=== PATIENT | female | born 2000 | race Caucasian/White ===

== ENCOUNTER 2022-07-22 17:14 | Emergency (ER) | payer BC, SELFPAY ==
[2022-07-22 17:19] VITALS: BP 144/80; PULSE 93; RESP 20; TEMP 37.6; O2SAT 98; BMI 32.3
--- OUTSIDE RECORDS SUMMARY | 2022-07-22 18:17 | XMS_ITS | Continuity of Care Document ---
Author Name Unknown Organization [facility] Address [address] [facility] [address] [place] [address] Care Team Providers Care Hand Tennis Ball Coverer Name Role Phone Caity Hamilton Primary Care Physician Encounter 04/01/22 - 04/01/22 [facility] [address] [facility] [address] [place] [address] [facility] Discharge Disposition: Home or Self Care 01 Allergies, Adverse Reactions, Alerts No Known Allergies Immunizations Given and Recorded Vaccine Date Status Refusal Reason influenza virus vaccine, inactivated 12/19/20 Piyush rded SARS-CoV-2 (COVID-19) mRNA-1273 vaccine 08/20/20 R ecorded SARS-CoV-2 (COVID-19) mRNA-1273 vaccine 07/23/20 R ecorded meningococcal group B vaccine 10/03/16 Recorded meningococcal group B vaccine 06/21/16 Recorded meningococcal polysaccharide vaccine 06/21/16 Piyush rded meningococcal polysaccharide vaccine 06/24/11 Piyush rded human papillomavirus vaccine 02/06/13 Recorded human papillomavirus vaccine 09/19/12 Recorded human papillomavirus vaccine 07/11/12 Recorded tetanus/diphtheria/pertussis,acel (Tdap) 06/24/11 Recorded tetanus/diphtheria/pertussis,acel (Tdap) 07/20/04 Recorded tetanus/diphtheria/pertussis,acel (Tdap) 11/09/01 Recorded tetanus/diphtheria/pertussis,acel (Tdap) 00 Recorded tetanus/diphtheria/pertussis,acel (Tdap) 00 Recorded tetanus/diphtheria/pertussis,acel (Tdap) 00 Recorded hepatitis A adult vaccine 05/02/11 Recorded hepatitis A adult vaccine 08/17/10 Recorded varicella virus vaccine 06/19/07 Recorded varicella virus vaccine 05/18/01 Recorded poliovirus vaccine, inactivated 07/20/04 Recorded poliovirus vaccine, inactivated 11/09/01 Recorded poliovirus vaccine, inactivated 00 Recorded poliovirus vaccine, inactivated 00 Recorded measles/mumps/rubella virus vaccine 07/20/04 Recor ded measles/mumps/rubella virus vaccine 08/14/01 Recor ded pneumococcal 13-valent vaccine 05/19/03 Recorded pneumococcal 13-valent vaccine 02/09/01 Recorded pneumococcal 13-valent vaccine 00 Recorded pneumococcal 13-valent vaccine 00 Recorded hepatitis B adult vaccine 00 Recorded hepatitis B adult vaccine 00 Recorded hepatitis B adult vaccine 00 Recorded haemophilus b conjugate (HbOC) vaccine 00 Re corded haemophilus b conjugate (HbOC) vaccine 00 Re corded haemophilus b conjugate (HbOC) vaccine 00 Re corded Medications dicyclomine 10 mg oral capsule 20 mg = 2 cap, Oral, QID, # 60 cap, 0 Refill(s), Prescription Routing: Route to Pharmacy Electronically, Pharmacy: [facility]/pharmacy #[id number], 167.4, 11/03/21 12:45:00 EDT, Height, cm, 87.6, 10/12/21 17:08:00 EDT, Dosing Weight, kg Start Date: 11/03/21 Status: Ordered Metamucil 1.7 gm, Oral, 0 Refill(s) Start Date: 12/17/21 Status: Ordered Vitamin D3 5000 intl units oral capsule See Instructions, Capsule, 3 po once a week, 0 Refill(s) Start Date: 10/12/21 Status: Ordered Problem List Condition Confirmation Course Effective Dates Status Health St atus Informant Constipation in female Confirmed Active Gilbert's syndrome Confirmed 12/25/20 Active IBS (irritable bowel syndrome) Confirmed Active Mild intermittent asthma Confirmed 11/13/19 Active 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
--- OUTSIDE RECORDS SUMMARY | 2022-07-22 18:17 | XMS_ITS | Continuity of Care Document ---
Author Name Unknown Organization [facility] Address [address] [place] [address] Care Team Providers Care Speech Correction Consultant Name Role Phone Caity Hamilton Primary Care Physician Encounter 01/11/22 - 01/11/22 [facility] [address] [place] [address]- Discharge Disposition: Home or Self Care 01 [...] Prescription Routing: Route to Pharmacy Electronically, Pharmacy: [facility]/pharmacy #[id number], 167.4, 11/03/21 12:45:00 EDT, Height, cm, 87.6, 10/12/21 17:08:00 EDT, Dosing Weight, kg Start Date: 11/03/21 Status: Ordered Metamucil 1.7 gm, Oral, 0 Refill(s) Start Date: 12/17/21 Status: Ordered Vitamin D3 5000 intl units oral capsule See Instructions, Capsule, 3 po once a week, 0 Refill(s) Start Date: 10/12/21 Status: Ordered Problem List Condition Effective Dates Status Health Status Inform ant Constipation in female(Confirmed) Active Gilbert's syndrome(Confirmed) 12/25/20 Active IBS (irritable bowel syndrome)(Confirmed) Active Mild intermittent asthma(Confirmed) 11/13/19 Active Myoclonus(Confirmed) 11/13/19 Active Pain in pelvis(Confirmed) Active PVCs (premature ventricular contractions)(Confirmed) Active Vitamin D deficiency(Confirmed) 02/02/21 Active Social History Social History Type Response Smoking Status Never (less than 100 in lifetime) entered on: 04/02/21 Sex
--- OUTSIDE RECORDS SUMMARY | 2022-07-22 18:17 | XMS_ITS | Continuity of Care Document ---
Author Name Unknown Organization [facility] Primary Care an d [address] [place] [phone] Encounter 03/29/21 - 03/29/21 [facility] Primary Care and Travel [address] [place] [address] Discharge Disposition: Home or Self Care 01 Assessment and Plan Future Appointments Appointment Date:04/02/2021 04:00:00 PM Scheduled Provider:Alfonso LANE, Caity Li Location:[facility] [place] Appointment Type:Acute Visit Medications magnesium oxide 400 mg (240 mg elemental magnesium) oral tablet Refill(s) 0 Start Date: 03/29/21 Status: Ordered
--- OUTSIDE RECORDS SUMMARY | 2022-07-22 18:17 | XMS_ITS | Continuity of Care Document ---
Author Name Unknown Organization [facility] Address [address] [place] [address] Care Team Providers Care Medical Staff Specialist Name Role Phone Caity Hamilton Primary Care Physician Encounter 03/29/22 - 03/29/22 [facility] [address] [place] [address]- Encounter Diagnosis Myoclonus(Discharge Diagnosis) - 03/29/22 Attending Physician: Mally Hartmann MD Referring Physician: Caity Hamilton MD Allergies, Adverse Reactions, Alerts No Known Allergies [...] Prescription Routing: Route to Pharmacy Electronically, Pharmacy: [facility]/pharmacy #[id number], 167.4, 11/03/21 12:45:00 EDT, Height, cm, [...] Active Vitamin D deficiency Confirmed 02/02/21 Active Vital Signs Most recent to oldest [Reference Range]: 1 Height [124-244 cm] 167.4 cm (03/29/22 10:53 AM) Height (in) 65.9 inch (03/29/22 10:53 AM) Weight 86.36 kg (03/29/22 10:53 AM) Body Mass Index 30.8 kg/m2 (03/29/22 10:53 AM) Social History Social History Type Response Smoking Status Never (less than 100 in lifetime) entered on: 04/02/21 Sex Patient Care team information Care Team Personnel Name: Caity Hamilton MD Position: P3 Physician Primary Care Member Role: Primary Care Physician Address: Address: [address] [place] [address] [address] [place] [address]-
--- OUTSIDE RECORDS SUMMARY | 2022-07-22 18:17 | XMS_ITS | Continuity of Care Document ---
Author Name Unknown Organization [facility] Primary Care an d Travel Medicine[address] [place] [address] Care Team Providers Care Real Estate Salesperson Name Role Phone Caity Hamilton Primary Care Physician Encounter 04/12/22 - 04/12/22 [facility] Primary Care and Travel [address] [place] [address] Discharge Disposition: Home or Self Care 01 [...] Routing: Route to Pharmacy Electronically, Pharmacy: [facility]/pharmacy #[id number], 167.4, 11/03/21 12:45:00 EDT, Height, cm, [...] Member Role: Primary Care Physician Address: Address: [address] [facility] [address] [place] [address]
--- OUTSIDE RECORDS SUMMARY | 2022-07-22 18:17 | XMS_ITS | Continuity of Care Document ---
Author Name Unknown Organization [facility] Primary Care an d Travel [address] [place] [address] Care Team Providers Care Deckhand Shrimp Boat Name Role Phone Caity Hamilton Primary Care Physician Encounter 12/17/21 - 12/19/21 [facility] Primary Care and Travel [address] [place] [address] Encounter Diagnosis IBS (irritable bowel syndrome)(Discharge Diagnosis) - 12/17/21 Constipation in female(Discharge Diagnosis) - 12/17/21 Discharge Disposition: Home or Self Care 01 Attending Physician: Caity Hamilton MD Referring Physician: Caity Hamilton MD Allergies, [...] Routing: Route to Pharmacy Electronically, Pharmacy: [facility]/pharmacy #[id number], 167.4, 11/03/21 12:45:00 EDT, Height, [...] contractions)(Confirmed) Active Vitamin D deficiency(Confirmed) 02/02/21 Active Vital Signs Most recent to oldest [Reference Range]: 1 Peripheral Pulse Rate [60-100 bpm] 67 bp m (12/17/21 12:17 PM) Blood Pressure [90-150/60-90 mmHg] 110/7 0mmHg (12/17/21 12:17 PM) Mean Arterial Pressure 83 mmHg (12/17/21 12:17 PM) Blood Pressure Laterality Right (12/17/21 12:17 PM) Blood Pressure Site Upper arm (12/17/21 12:17 PM) SpO2 [94-100 %] 93 % *LOW* (12/17/21 12:17 PM) Height 167.4 cm (12/17/21 12:17 PM) Height (in) 65.9 inch (12/17/21 12:17 PM) Weight 89.4 kg (12/17/21 12:17 PM) Weight (lbs) 196.68 lb (12/17/21 12:17 PM) Body Mass Index 31.9 kg/m2 (12/17/21 12:17 PM) Dosing Weight 89.40 kg 1 (12/17/21 12:17 PM) 1Result Comment: Created by a rule ([facility]_[id number]) from the measured Weight Social History Social History Type Response Smoking Status Never (less than 100 in lifetime) entered on: 04/02/21 Sex
--- OUTSIDE RECORDS SUMMARY | 2022-07-22 18:17 | XMS_ITS | Continuity of Care Document ---
Author Name Unknown Organization [facility] Primary Care an d Travel Medicine[address] [place] [address] Care Team Providers Care Bilingual Case Manager Name Role Phone Caity Hamilton Primary Care Physician Encounter 04/02/21 - 04/02/21 [facility] Primary Care and Travel Medicine[address] [place] [address] Encounter Diagnosis Vitamin D deficiency(Discharge Diagnosis) - 04/02/21 Myoclonus(Discharge Diagnosis) - 04/02/21 Pain in pelvis(Discharge Diagnosis) - 04/02/21 Discharge Disposition: Home or Self Care 01 Attending Physician: Caity Hamilton MD Referring Physician: Caity Hamilton MD Allergies, Adverse Reactions, Alerts No Known Allergies Assessment and Plan Diagnostic Tests Pending * Vitamin D 25 OH 04/02/21 Immunizations Given and Recorded Vaccine Date Status [...] conjugate (HbOC) vaccine 00 Re corded Medications magnesium oxide 400 mg (240 mg elemental magnesium) oral tablet Refill(s) 0 Start Date: 03/29/21 Status: Ordered Vitamin D2 2000 intl units oral capsule 50 mcg = 1 cap, Oral, qDay, 0 Refill(s) Start Date: 04/02/21 Status: Ordered Vitamin D2 50,000 intl units (1.25 mg) oral capsule 50,000 IntUnit = 1 cap, Oral, 2x/Wk, # 8 cap, 0 Refill(s), Prescription Routing: Route to Pharmacy Electronically, Pharmacy: [facility]/pharmacy #[id number], 167.4, 04/02/21 16:00:00 EST, Height, cm Start Date: 04/02/21 Status: Ordered Problem List Condition Effective Dates Status Health Status Inform ant Gilbert's syndrome(Confirmed) 12/25/20 Active Mild intermittent asthma(Confirmed) 11/13/19 Active Myoclonus(Confirmed) 11/13/19 Active Pain in pelvis(Confirmed) Active Vitamin D deficiency(Confirmed) 02/02/21 Active Vital Signs Most recent to oldest [Reference Range]: 1 Temperature Oral [36-38 DegC] 36.6 DegC (04/02/21 4:00 PM) Temperature Oral (F) [96.8-100.4 DegF] 9 7.9 DegF (04/02/21 4:00 PM) Peripheral Pulse Rate [60-100 bpm] 80 bp m (04/02/21 4:00 PM) Blood Pressure [90-150/60-90 mmHg] 116/7 2mmHg (04/02/21 4:00 PM) Mean Arterial Pressure 87 mmHg (04/02/21 4:00 PM) Blood Pressure Method Manual (04/02/21 4:00 PM) Blood Pressure Laterality Right (04/02/21 4:00 PM) Blood Pressure Site Upper arm (04/02/21 4:00 PM) SpO2 [94-100 %] 98 % (04/02/21 4:00 PM) Height 167.4 cm (04/02/21 4:00 PM) Height (in) 65.9 inch (04/02/21 4:00 PM) Weight 93.0 kg (04/02/21 4:00 PM) Weight (lbs) 204.6 lb (04/02/21 4:00 PM) Body Mass Index 33.2 kg/m2 (04/02/21 4:00 PM) Social History Social History Type Response Smoking Status Never (less than 100 in lifetime) entered on: 04/02/21 Sex
--- OUTSIDE RECORDS SUMMARY | 2022-07-22 18:17 | XMS_ITS | Continuity of Care Document ---
Author Name Unknown Organization [facility] Primary Care an [address] [place] [address] Care Team Providers Care Public Health Aides Teacher Name Role Phone Caity Hamilton Primary Care Physician Encounter 11/03/21 - 11/05/21 [facility] Primary Care and [address] [place] [address] Encounter Diagnosis Constipation in female(Discharge Diagnosis) - 11/03/21 IBS (irritable bowel syndrome)(Discharge Diagnosis) - 11/03/21 Discharge Disposition: Home or Self Care 01 Attending Physician: Caity Hamilton MD Referring Physician: Caity Hamilton MD Allergies, Adverse Reactions, Alerts No Known Allergies Assessment and Plan Future Appointments Appointment Date:12/17/2021 12:00:00 PM Scheduled Provider:Caity Hamilton MD Location:[facility] [place] [place] Appointment Type:Return Patient Immunizations Given and Recorded Vaccine Date Status [...] Prescription Routing: Route to Pharmacy Electronically, Pharmacy: [facility]/pharmacy #[id number], 167.4, 11/03/21 12:45:00 EDT, Height, cm, 87.6, 10/12/21 17:08:00 EDT, Dosing Weight, kg Start Date: 11/03/21 Status: Ordered Vitamin D3 5000 intl units [...] 1 Temperature Oral [36-38 DegC] 36.6 DegC (11/03/21 12:45 PM) Temperature Oral (F) [96.8-100.4 DegF] 9 7.9 DegF (11/03/21 12:45 PM) Peripheral Pulse Rate [60-100 bpm] 87 bp m (11/03/21 12:45 PM) Blood Pressure [90-150/60-90 mmHg] 120/8 0mmHg (11/03/21 12:45 PM) Mean Arterial Pressure 93 mmHg (11/03/21 12:45 PM) Blood Pressure Laterality Left (11/03/21 12:45 PM) Blood Pressure Site Upper arm (11/03/21 12:45 PM) SpO2 [94-100 %] 99 % (11/03/21 12:45 PM) Height 167.4 cm (11/03/21 12:45 PM) Height (in) 65.9 inch (11/03/21 12:45 PM) Body Mass Index 0 kg/m2 (11/03/21 12:45 PM) Social History Social History Type Response Smoking Status Never (less than 100 in lifetime) entered on: 04/02/21 Sex
--- NOTE | 2022-07-22 18:41 | ED.UPPEXIN ---
HPI - Extremity Injury (Upper) General Chief Complaint: Extremity Pain/Injury, Upper Stated Complaint: Left Shoulder, neck, chest, back discomfort Time Seen by Provider: 07/22/22 17:22 History of Present Illness HPI narrative: This 22-year-old female comes in reporting 1 week of pain in her posterior neck and left shoulder along with her left upper arm and upper anterior chest. She does not report any injury event or strenuous activity. This pain is been present for about a week and is rather constant. There are some things that she can do to aggravate and alleviate the pain. She denies having any nausea, vomiting, lightheadedness, shortness of breath, diaphoresis, or exercise intolerance. Related Data Previous Rx's Medication Instructions Recorded cyclobenzaprine 10 mg tablet 10 mg PO TID #15 tabs 07/22/22 ketorolac 10 mg tablet 10 mg PO Q8H 5 days #15 tabs 07/22/22 methylprednisolone 4 mg tablets in See Rx Instructions PO .COMPLEX 07/22/22 a dose pack (Medrol (Raj)) #21 ea Allergies Allergy/AdvReac Type Severity Reaction Status Date / Time No Known Drug Allergies Allergy Verified 07/22/22 17:22 Review of Systems Status of ROS: Reports: 10 or more systems reviewed and unremarkable except as noted in History and below Narrative: Constitutional: No fevers, no weight gain or loss. Eyes: No discharge. No vision changes. HENT: No congestion, no sore throat, no ear pain. Cardiovascular: No chest pain, no palpitations. Respiratory: No shortness of breath, no wheezes, no cough. Gastrointestinal: No abdominal pain, no vomiting, no diarrhea. Genitourinary: No dysuria, no hematuria. Musculoskeletal: Normal range of motion. Pain in the left side of the neck and in the shoulder region and left upper arm. Skin: No rashes, no pruritis. Neurological: No dizziness, weakness, sensory change, speech change. Endo/Heme/Allergies: No bruising or bleeding. No polydipsia. Pysch: no suicidality, no anxiety, no insomnia. All other systems reviewed and are negative. PFS PFS Social History Smoking Status: Never smoker Do you use any of these nicotine containing products: None Second hand tobacco smoke exposure: No How often do you have a drink containing alcohol: never AUDIT-C Alcohol total score: 0 Non-prescribed substance use: former substance user Exam Narrative: Exam Narrative: Constitutional: Well-developed, well-nourished, no acute distress. HEENT: Normocephalic, atraumatic. Neck: Normal range of motion. Nontender. Supple. Heart: Regular. No murmurs. Normal rate. Intact distal pulses. Lungs: Clear to auscultation. No wheezes, rhonchi, or rales. Abdomen: Normal bowel sounds. Nontender. No rebound tenderness. Genitalia: Deferred. Back: No midline tenderness. Normal range of motion. Extremities: Normal range of motion. No injury. Skin: Intact. No rash. Warm. No erythema or pallor. Neurologic: No altered sensation. No weakness. Alert and oriented. Spurling's test is negative. Psychiatric: No suicidality. No anxiety or depression. No insomnia. Nursing notes and vitals signs are reviewed. Const: Vital Signs, click to edit/add: Vital Signs - 24 hr 07/22/22 17:19 Temperature 99.6 F Pulse Rate [Pulse Oximeter] 93 Respiratory Rate 20 Blood Pressure [Ri ght Upper Arm] 144/80 H Pulse Oximetry 98 Oxygen Delivery Me thod Room Air Course Vital Signs Vital signs: Initial Vital Signs Temperature 99.6 F 07/22/22 17:19 Temperature Source Temporal Artery Scan 07/22/22 17:19 Pulse Rate 93 07/22/22 17:19 Respiratory Rate 20 07/22/22 17:19 Blood Pressure 144/80 H 07/22/22 17:19 Blood Pressure Mean 101 07/22/22 17:19 Blood Pressure Position Sitting 07/22/22 17:19 Pulse Oximetry 98 07/22/22 17:19 Oxygen Delivery Method Room Air 07/22/22 17:19 Vital Signs Temperature 99.6 F 07/22/22 17:19 Pulse Rate 93 07/22/22 17:19 Respiratory Rate 20 07/22/22 17:19 Blood Pressure 144/80 H 07/22/22 17:19 Pulse Oximetry 98 07/22/22 17:19 Oxygen Delivery Method Room Air 07/22/22 17:19 Temperature 99.6 F 07/22/22 17:19 Pulse Rate 93 07/22/22 17:19 Respiratory Rate 20 07/22/22 17:19 Blood Pressure 144/80 H 07/22/22 17:19 Pulse Oximetry 98 07/22/22 17:19 Oxygen Delivery Method Room Air 07/22/22 17:19 MDM - Extremity Injury (Upper) MDM Narrative Medical decision making narrative: This patient has pain in the left side of her neck into her posterior and anterior shoulder and upper arm on the left side. There was no particular injury event or strenuous activity to trigger these symptoms. They have been present for about a week and the patient states that there is no particular improvement throughout the course of this week. She does not have any pain radiating into her arm or hand. I did discuss imaging options but indicated these would not be helpful as there is no mechanism of injury suspicious for a bony injury. The patient received prescriptions for Toradol, Flexeril, and Medrol Dosepak. I advised her to follow-up if not improving and encouraged regular activity as tolerated. Discharge Plan Discharge Clinical Impression: Arthralgia of left shoulder region Patient Disposition: Home, Self-Care Condition: Stable Additional Instructions: Take medication as needed and directed. Follow up with MD if not improving. Return if worsening. Prescriptions: New cyclobenzaprine 10 mg tablet 10 mg PO TID Qty: 15 0RF ketorolac 10 mg tablet 10 mg PO Q8H 5 Days Qty: 15 0RF methylprednisolone [Medrol (Raj)] 4 mg tablets,dose pack See Rx Instructions .ROUTE .COMPLEX Qty: 21 0RF Rx Instructions: orally per package directions Follow Up/Referrals: Provider,Not a Local [Primary Care Provider] - Stand Alone Forms: T2 System[employer] Info Instructions
== END 2022-07-22 18:53 | disposition home or self-care (01) ==
PROVIDERS: Emergency Provider Emergency Medicine Emergency Medical Services
DX: M25.512 Pain in left shoulder (principal)
CPT/HCPCS: 99283; 99284